=== PATIENT | male | born 1930 | race Caucasian/White ===

== ENCOUNTER → 2016-05-12 | Outpatient (CLI) | payer MEDICARE, OTHER ==
[~2016-05-12] VITALS: Ht 188 cm; Wt 104.3 kg
[~2016-05-12] MED LIST: CELE100C PO; FLOM5CAP PO; FLUT1LOT; LIDOCAINE 2% INJ 100 MG/5 ML SDV (FOR ANES.) As Ordered ONE; METO25TA74 PO; NS 1,000 ML IV SCH; PROPOFOL 200 MG/20 ML VIAL As Ordered ONE
--- NOTE | 2016-05-12 08:52 | ROOR ---
Patient Name: Robin Tillman Procedure Date: 05/12/2016 8:26 AM Date of : 1930 Age: 86 Room: [facility] Gender: Male Note Status: Finalized Procedure: Colonoscopy Indications: High risk colon cancer surveillance: Personal history of colonic polyps, Last colonoscopy: June 2011 Providers: Quentin TRINH MD Referring MD: AMADO BILL MD Requesting Provider: Medicines: Monitored Anesthesia Care Complications: No immediate complications. Procedure: Pre-Anesthesia Assessment: - The heart rate, respiratory rate, oxygen saturations, blood pressure, adequacy of pulmonary ventilation, and response to care were monitored throughout the procedure. The Colonoscope was introduced through the anus and advanced to the cecum, identified by appendiceal orifice and ileocecal valve. The colonoscopy was performed without difficulty. The patient tolerated the procedure well. The quality of the bowel preparation was good. Findings: Internal hemorrhoids were found during retroflexion. The hemorrhoids were medium-sized. Multiple diverticula were found in the sigmoid colon. The entire examined colon appeared normal on direct and retroflexion views. Impression: - Internal hemorrhoids. - Diverticulosis in the sigmoid colon. - The entire examined colon is normal on direct and retroflexion views. - No specimens collected. Recommendation: - Repeat colonoscopy as needed, no routine recall has been scheduled. Quentin Trinh MD Quentin TRINH MD 05/12/2016 8:52:39 AM This report has been signed electronically. Number of Addenda: 0 Note Initiated On: 05/12/2016 8:26 AM Estimated Blood Loss: Estimated blood loss: none.
[2016-05-12 09:10] VITALS: BP 158/84
== END ==
LOC: M OPP 07:30
PROVIDERS: ATTEND Internal Medicine Gastroenterology
DX: Z12.11 Encounter for screening for malignant neoplasm of colon (principal); Z86.010 Personal history of colon polyps; K57.30 Diverticulosis of large intestine without perforation or abscess without bleeding; K64.0 First degree hemorrhoids; I10 Essential (primary) hypertension; M19.90 Unspecified osteoarthritis, unspecified site; R21 Rash and other nonspecific skin eruption; N41.9 Inflammatory disease of prostate, unspecified; Z87.891 Personal history of nicotine dependence; Z85.46 Personal history of malignant neoplasm of prostate; Z85.828 Personal history of other malignant neoplasm of skin; Z79.899 Other long term (current) drug therapy
CPT/HCPCS: 99156; 99157; G0105

== ENCOUNTER → 2016-09-05 | Outpatient (REF) | payer MEDICARE, OTHER ==
[~2016-09-05] MED LIST changes: -LIDOCAINE 2% INJ 100 MG/5 ML SDV (FOR ANES.) As Ordered ONE; -NS 1,000 ML IV SCH; -PROPOFOL 200 MG/20 ML VIAL As Ordered ONE
[2016-09-05 13:09] LABS: BASO % 0.4 % (0.0-1.0); EOS # 0.1 K/mm3 (0.0-0.50); EOS % 3.2 % (0.0-3.0); LARGE UNSTAINED CELL # 0.1 K/mm3 (0.0-0.4); LARGE UNSTAINED CELL % 1.9 % (0.0-4.0); LYMPH # 1.4 K/mm3 (1.5-4.5); LYMPH % 32.4 % (24.0-44.0); MEAN CORPUSCULAR HEMOGLOBIN 30.6 pg (27.0-33.0); MEAN CORPUSCULAR HGB CONC 33.3 g/dl (32.0-36.5); MEAN CORPUSCULAR VOLUME 91.8 fl (80.0-96.0); MONO # 0.3 K/mm3 (0.0-0.8); MONO % 6.6 % (0.0-5.0); NEUTROPHILS # 2.5 K/mm3 (1.8-7.7); NEUTROPHILS % 55.5 % (36.0-66.0); PLATELET COUNT, AUTOMATED 162 k/mm3 (150-450); RED CELL DISTRIBUTION WIDTH 12.7 % (11.5-14.5); WHITE BLOOD COUNT 4.4 K/mm3 (4.0-10.0)
[2016-09-05 13:25] LABS: FOLATE 13.1 NG/ML; VITAMIN B12 LEVEL 292 PG/ML
[2016-09-05 13:36] LABS: ERYTHROCYTE SEDIMENTATION RATE 1 mm/hr (0-20)
[2016-09-05 13:39] LABS: ALBUMIN 3.5 GM/DL (3.2-5.2); ALBUMIN/GLOBULIN RATIO 1.21 (1.00-1.93); ALKALINE PHOSPHATASE 86 U/L (45-117); ALT/SGPT 28 U/L (12-78); ANION GAP 8 MEQ/L (8-16); AST/SGOT 15 U/L (15-37); BILIRUBIN,TOTAL 0.7 MG/DL (0.2-1.0); BLOOD UREA NITROGEN 19 MG/DL (7-18); CALCIUM LEVEL 8.6 MG/DL (8.8-10.2); CARBON DIOXIDE LEVEL 30 MEQ/L (21-32); CHLORIDE LEVEL 103 MEQ/L (98-107); CREATININE FOR GFR 0.94 MG/DL (0.70-1.30); GLOMERULAR FILTRATION RATE > 60.0 (>35); GLUCOSE, FASTING 112 MG/DL (83-110); POTASSIUM SERUM 4.3 MEQ/L (3.5-5.1); SODIUM LEVEL 141 MEQ/L (136-145); TOTAL PROTEIN 6.4 GM/DL (6.4-8.2)
[2016-09-09 00:07] LABS: VITAMIN E LEVEL 10.5 mg/L (5.3-17.5)
== END ==
LOC: M LABDRAW1 12:25 → M LABNEURO 12:25
PROVIDERS: ATTEND Psychiatry & Neurology Neurology
DX: R25.1 Tremor, unspecified (principal); R26.89 Other abnormalities of gait and mobility; R73.01 Impaired fasting glucose

== ENCOUNTER → 2016-10-27 | Outpatient (REF) | payer MEDICARE, OTHER ==
[~2016-10-27] MED LIST changes: +METO1TAB32 PO; -METO25TA74 PO
[2016-10-27 12:25] LABS: ALBUMIN 3.7 GM/DL (3.2-5.2); ALBUMIN/GLOBULIN RATIO 1.37 (1.00-1.93); ALKALINE PHOSPHATASE 74 U/L (45-117); ALT/SGPT 32 U/L (12-78); ANION GAP 7 MEQ/L (8-16); AST/SGOT 17 U/L (15-37); BILIRUBIN,TOTAL 0.8 MG/DL (0.2-1.0); BLOOD UREA NITROGEN 18 MG/DL (7-18); CALCIUM LEVEL 8.9 MG/DL (8.8-10.2); CARBON DIOXIDE LEVEL 29 MEQ/L (21-32); CHLORIDE LEVEL 101 MEQ/L (98-107); CHOLESTEROL LEVEL 215 MG/DL (<200); CREATININE FOR GFR 0.97 MG/DL (0.70-1.30); GLOMERULAR FILTRATION RATE > 60.0 (>35); GLUCOSE, FASTING 99 MG/DL (83-110); POTASSIUM SERUM 4.1 MEQ/L (3.5-5.1); SODIUM LEVEL 137 MEQ/L (136-145); TOTAL PROTEIN 6.4 GM/DL (6.4-8.2); TRIGLYCERIDES LEVEL 86 MG/DL (<150)
== END ==
LOC: M LABDRAW1 11:35
PROVIDERS: ATTEND Emergency Medicine
DX: E78.2 Mixed hyperlipidemia (principal); I10 Essential (primary) hypertension

== ENCOUNTER → 2017-02-14 | Outpatient (CLI) | payer MEDICARE, OTHER ==
[2017-02-15 14:18] LABS: PSA % FREE 16.7 % (.); PSA FREE 1.2 ng/mL; PSA TOTAL 7.2 ng/mL (0.0-4.0)
== END ==
LOC: M WUC 09:06
PROVIDERS: ATTEND Urology
DX: C61 Malignant neoplasm of prostate (principal)

== ENCOUNTER → 2017-05-03 | Outpatient (CLI) | payer MEDICARE, OTHER ==
[2017-05-03 09:27] LABS: ALBUMIN 3.8 GM/DL (3.2-5.2); ALBUMIN/GLOBULIN RATIO 1.23 (1.00-1.93); ALKALINE PHOSPHATASE 88 U/L (45-117); ALT/SGPT 31 U/L (12-78); ANION GAP 6 MEQ/L (8-16); AST/SGOT 19 U/L (7-37); BILIRUBIN,TOTAL 0.9 MG/DL (0.2-1.0); BLOOD UREA NITROGEN 18 MG/DL (7-18); CALCIUM LEVEL 8.8 MG/DL (8.8-10.2); CARBON DIOXIDE LEVEL 31 MEQ/L (21-32); CHLORIDE LEVEL 105 MEQ/L (98-107); CHOLESTEROL LEVEL 194 MG/DL (<200); CHOLESTEROL RISK RATIO 3.129 (<5); CREATININE FOR GFR 0.93 MG/DL (0.70-1.30); GLOMERULAR FILTRATION RATE > 60.0 (>35); GLUCOSE, FASTING 105 MG/DL (70-100); HDL CHOLESTEROL 62 MG/DL (>40); NON-HDL-C 132 MG/DL; POTASSIUM SERUM 4.7 MEQ/L (3.5-5.1); SODIUM LEVEL 142 MEQ/L (136-145); TOTAL PROTEIN 6.9 GM/DL (6.4-8.2); TRIGLYCERIDES LEVEL 70 MG/DL (<150)
== END ==
LOC: M WUC 08:05
DX: E78.2 Mixed hyperlipidemia (principal); I10 Essential (primary) hypertension
CPT/HCPCS: 80053

== ENCOUNTER → 2018-02-21 | Outpatient (REF) | payer MEDICARE, OTHER ==
[2018-02-21 12:40] LABS: PROSTATIC SPECIFIC AG MONITOR 8.8 NG/ML (< 4.0)
== END ==
LOC: M LABDRAW1 11:44
DX: C61 Malignant neoplasm of prostate (principal)
CPT/HCPCS: 84153

== ENCOUNTER → 2018-05-11 | Outpatient (REF) | payer MEDICARE, OTHER ==
[~2018-05-11] MED LIST changes: +FLOM0.4C39 PO; -FLOM5CAP PO
[2018-05-11 12:04] LABS: BASO % 0.2 % (0.0-1.0); EOS # 0.1 10^3/uL (0.0-0.50); EOS % 2.5 % (0.0-3.0); HEMATOCRIT 47.5 % (42.0-52.0); HEMOGLOBIN 15.8 g/dl (13.5-17.5); LYMPH # 1.6 10^3/uL (1.5-4.5); LYMPH % 32.8 % (24.0-44.0); MEAN CORPUSCULAR HEMOGLOBIN 29.4 pg (27.0-33.0); MEAN CORPUSCULAR HGB CONC 33.3 g/dl (32.0-36.5); MEAN CORPUSCULAR VOLUME 88.5 fl (80.0-96.0); MONO # 0.5 10^3/uL (0.0-0.8); MONO % 10.5 % (0.0-5.0); NEUTROPHILS # 2.6 10^3/uL (1.8-7.7); NEUTROPHILS % 53.8 % (36.0-66.0); PLATELET COUNT, AUTOMATED 163 10^3/uL (150-450); RED BLOOD COUNT 5.37 10^6/uL (4.30-6.10); WHITE BLOOD COUNT 4.8 10^3/uL (4.0-10.0)
[2018-05-11 12:53] LABS: BLOOD UREA NITROGEN 18 MG/DL (7-18); CREATININE FOR GFR 0.99 MG/DL (0.70-1.30); GLUCOSE, FASTING 114 MG/DL (70-100)
[2018-05-11 12:54] LABS: ALBUMIN 3.8 GM/DL (3.2-5.2); ALT/SGPT 40 U/L (12-78); BILIRUBIN,TOTAL 0.7 MG/DL (0.2-1.0); CALCIUM LEVEL 8.7 MG/DL (8.8-10.2); CARBON DIOXIDE LEVEL 30 MEQ/L (21-32); CHLORIDE LEVEL 105 MEQ/L (98-107); CHOLESTEROL LEVEL 187 MG/DL (<200); GLOMERULAR FILTRATION RATE > 60.0 (>35); HDL CHOLESTEROL 55 MG/DL (>40); LDL CHOLESTEROL 112 MG/DL (<100); NON-HDL-C 132 MG/DL; POTASSIUM SERUM 4.4 MEQ/L (3.5-5.1); SODIUM LEVEL 140 MEQ/L (136-145); TOTAL PROTEIN 6.6 GM/DL (6.4-8.2); TRIGLYCERIDES LEVEL 102 MG/DL (<150)
== END ==
LOC: M LABDRAW1 09:06
PROVIDERS: ATTEND Physician Assistant
DX: I10 Essential (primary) hypertension (principal); E78.2 Mixed hyperlipidemia

== ENCOUNTER → 2018-07-31 | Outpatient (REF) | payer MEDICARE, OTHER ==
[2018-07-31 18:43] LABS: BASO % 0.5 % (0.0-1.0); EOS # 0.2 10^3/uL (0.0-0.50); EOS % 3.1 % (0.0-3.0); HEMATOCRIT 49.2 % (42.0-52.0); HEMOGLOBIN 15.8 g/dl (13.5-17.5); LYMPH # 1.9 10^3/uL (1.5-4.5); LYMPH % 32.1 % (24.0-44.0); MEAN CORPUSCULAR HEMOGLOBIN 28.9 pg (27.0-33.0); MEAN CORPUSCULAR HGB CONC 32.1 g/dl (32.0-36.5); MEAN CORPUSCULAR VOLUME 89.9 fl (80.0-96.0); MONO # 0.6 10^3/uL (0.0-0.8); MONO % 10.2 % (0.0-5.0); NEUTROPHILS # 3.1 10^3/uL (1.8-7.7); NEUTROPHILS % 53.9 % (36.0-66.0); PLATELET COUNT, AUTOMATED 212 10^3/uL (150-450); RED BLOOD COUNT 5.47 10^6/uL (4.30-6.10); WHITE BLOOD COUNT 5.8 10^3/uL (4.0-10.0)
[2018-07-31 18:44] LABS: ALBUMIN 3.5 GM/DL (3.2-5.2); ALT/SGPT 50 U/L (12-78); BILIRUBIN,TOTAL 0.6 MG/DL (0.2-1.0); BLOOD UREA NITROGEN 15 MG/DL (7-18); CALCIUM LEVEL 8.5 MG/DL (8.8-10.2); CARBON DIOXIDE LEVEL 31 MEQ/L (21-32); CHLORIDE LEVEL 106 MEQ/L (98-107); CREATININE FOR GFR 0.92 MG/DL (0.70-1.30); GLOMERULAR FILTRATION RATE > 60.0 (>35); GLUCOSE, FASTING 93 MG/DL (70-100); POTASSIUM SERUM 4.2 MEQ/L (3.5-5.1); SODIUM LEVEL 141 MEQ/L (136-145); TOTAL PROTEIN 6.8 GM/DL (6.4-8.2)
== END ==
LOC: M LABDRAW1 17:14
PROVIDERS: ATTEND Physician Assistant
DX: R19.7 Diarrhea, unspecified (principal)

== ENCOUNTER → 2018-08-01 | Outpatient (REF) | payer MEDICARE, OTHER | LOC: M LAB REF 11:35 | PROVIDERS: ATTEND Physician Assistant | DX: R19.7 Diarrhea, unspecified (principal) ==

== ENCOUNTER → 2018-10-17 | Outpatient (CLI) | payer MEDICARE, OTHER ==
[2018-10-17 20:23] LABS: BASO % 0.2 % (0.0-1.0); EOS # 0.2 10^3/uL (0.0-0.50); EOS % 3.5 % (0.0-3.0); HEMATOCRIT 48.1 % (42.0-52.0); HEMOGLOBIN 15.8 g/dl (13.5-17.5); LYMPH # 1.9 10^3/uL (1.5-4.5); MEAN CORPUSCULAR HEMOGLOBIN 29.3 pg (27.0-33.0); MEAN CORPUSCULAR HGB CONC 32.8 g/dl (32.0-36.5); MEAN CORPUSCULAR VOLUME 89.1 fl (80.0-96.0); MONO # 0.6 10^3/uL (0.0-0.8); NEUTROPHILS # 2.6 10^3/uL (1.8-7.7); NEUTROPHILS % 48.9 % (36.0-66.0); PLATELET COUNT, AUTOMATED 180 10^3/uL (150-450); WHITE BLOOD COUNT 5.4 10^3/uL (4.0-10.0)
[2018-10-17 20:38] LABS: ALBUMIN 3.6 GM/DL (3.2-5.2); ALT/SGPT 27 U/L (12-78); BILIRUBIN,TOTAL 0.4 MG/DL (0.2-1.0); BLOOD UREA NITROGEN 14 MG/DL (7-18); CALCIUM LEVEL 8.8 MG/DL (8.8-10.2); CARBON DIOXIDE LEVEL 30 MEQ/L (21-32); CHLORIDE LEVEL 108 MEQ/L (98-107); CREATININE FOR GFR 0.97 MG/DL (0.70-1.30); GLOMERULAR FILTRATION RATE > 60.0 (>35); GLUCOSE, FASTING 125 MG/DL (70-100); POTASSIUM SERUM 3.9 MEQ/L (3.5-5.1); SODIUM LEVEL 144 MEQ/L (136-145); TOTAL PROTEIN 6.8 GM/DL (6.4-8.2)
== END ==
LOC: M WUC 15:57
PROVIDERS: ATTEND Physician Assistant
DX: H81.13 Benign paroxysmal vertigo, bilateral (principal)

== ENCOUNTER → 2018-11-27 | Outpatient (CLI) | payer MEDICARE, OTHER ==
--- NOTE | 2018-11-27 08:42 | REP ---
Right foot four views: There are no comparisons. There is demineralization. The joint spaces are unremarkable. There are accessory ossicles inferolateral to the cuboid. There is spurring along the superior margin of the talonavicular joint. There is a small calcaneal plantar spur. No fracture or dislocation. Electronically Signed by Vinny Gonzalez MD 11/27/2018 08:33 A
== END ==
LOC: M WUC 08:07
PROVIDERS: ATTEND Physician Assistant Medical
DX: M79.672 Pain in left foot (principal)

== ENCOUNTER → 2019-01-26 | Outpatient (CLI) | payer MEDICARE, OTHER ==
[2019-01-26 18:03] LABS: BASO % 0.3 % (0.0-1.0); EOS # 0.1 10^3/uL (0.0-0.5); EOS % 1.7 % (0.0-3.0); HEMATOCRIT 51.4 % (42.0-52.0); HEMOGLOBIN 16.5 g/dl (13.5-17.5); LYMPH # 1.6 10^3/uL (1.5-5.0); LYMPH % 22.3 % (24.0-44.0); MEAN CORPUSCULAR HEMOGLOBIN 29.5 pg (27.0-33.0); MEAN CORPUSCULAR HGB CONC 32.1 g/dl (32.0-36.5); MEAN CORPUSCULAR VOLUME 91.9 fl (80.0-96.0); MONO # 0.7 10^3/uL (0.0-0.8); MONO % 9.4 % (0.0-5.0); NEUTROPHILS # 4.8 10^3/uL (1.5-8.5); NEUTROPHILS % 65.9 % (36.0-66.0); PLATELET COUNT, AUTOMATED 170 10^3/uL (150-450); RED BLOOD COUNT 5.59 10^6/uL (4.30-6.10); WHITE BLOOD COUNT 7.2 10^3/uL (4.0-10.0)
[2019-01-26 18:06] LABS: ALBUMIN 3.8 GM/DL (3.2-5.2); ALT/SGPT 26 U/L (12-78); BILIRUBIN,TOTAL 0.7 MG/DL (0.2-1.0); BLOOD UREA NITROGEN 20 MG/DL (7-18); CALCIUM LEVEL 9.1 MG/DL (8.8-10.2); CARBON DIOXIDE LEVEL 32 MEQ/L (21-32); CHLORIDE LEVEL 105 MEQ/L (98-107); CREATININE FOR GFR 1.02 MG/DL (0.70-1.30); GLOMERULAR FILTRATION RATE > 60.0 (>35); GLUCOSE, FASTING 97 MG/DL (70-100); LIPASE 139 U/L (73-393); POTASSIUM SERUM 4.6 MEQ/L (3.5-5.1); SODIUM LEVEL 141 MEQ/L (136-145); TOTAL PROTEIN 7.1 GM/DL (6.4-8.2)
== END ==
LOC: M WUC 09:36
PROVIDERS: ATTEND Physician Assistant
DX: R10.30 Lower abdominal pain, unspecified (principal)

== ENCOUNTER → 2019-04-29 | Outpatient (CLI) | payer MEDICARE, OTHER ==
[2019-04-29 09:39] LABS: BASO % 0.4 % (0.0-1.0); EOS # 0.1 10^3/uL (0.0-0.5); EOS % 2.6 % (0.0-3.0); HEMOGLOBIN 16.3 g/dl (13.5-17.5); LYMPH % 35.7 % (24.0-44.0); MEAN CORPUSCULAR HEMOGLOBIN 28.6 pg (27.0-33.0); MEAN CORPUSCULAR HGB CONC 31.3 g/dl (32.0-36.5); MEAN CORPUSCULAR VOLUME 91.2 fl (80.0-96.0); MONO # 0.5 10^3/uL (0.0-0.8); MONO % 9.5 % (0.0-5.0); NEUTROPHILS # 2.8 10^3/uL (1.5-8.5); NEUTROPHILS % 51.6 % (36.0-66.0); PLATELET COUNT, AUTOMATED 172 10^3/uL (150-450); WHITE BLOOD COUNT 5.5 10^3/uL (4.0-10.0)
[2019-04-29 10:05] LABS: ALBUMIN 3.8 GM/DL (3.2-5.2); ALT/SGPT 26 U/L (12-78); BILIRUBIN,TOTAL 0.8 MG/DL (0.2-1.0); BLOOD UREA NITROGEN 17 MG/DL (7-18); CARBON DIOXIDE LEVEL 32 MEQ/L (21-32); CHLORIDE LEVEL 107 MEQ/L (98-107); CHOLESTEROL LEVEL 190 MG/DL (<200); CHOLESTEROL RISK RATIO 2.923 (<5); CREATININE FOR GFR 0.97 MG/DL (0.70-1.30); GLOMERULAR FILTRATION RATE > 60.0 (>35); GLUCOSE, FASTING 102 MG/DL (70-100); HDL CHOLESTEROL 65 MG/DL (>40); LDL CHOLESTEROL 112 MG/DL (<100); NON-HDL-C 125 MG/DL; POTASSIUM SERUM 4.5 MEQ/L (3.5-5.1); SODIUM LEVEL 142 MEQ/L (136-145); TOTAL PROTEIN 6.8 GM/DL (6.4-8.2); TRIGLYCERIDES LEVEL 64 MG/DL (<150)
== END ==
LOC: M WUC 08:05
PROVIDERS: ATTEND Physician Assistant
DX: E78.2 Mixed hyperlipidemia (principal); I10 Essential (primary) hypertension; R19.7 Diarrhea, unspecified

== ENCOUNTER → 2019-06-20 | Outpatient (CLI) | payer MEDICARE, OTHER ==
[2019-06-20 13:11] LABS: BASO % 0.2 % (0.0-1.0); EOS # 0.1 10^3/uL (0.0-0.5); EOS % 0.6 % (0.0-3.0); HEMATOCRIT 50.4 % (42.0-52.0); HEMOGLOBIN 16.2 g/dl (13.5-17.5); LYMPH # 1.6 10^3/uL (1.5-5.0); MEAN CORPUSCULAR HEMOGLOBIN 29.1 pg (27.0-33.0); MEAN CORPUSCULAR HGB CONC 32.1 g/dl (32.0-36.5); MEAN CORPUSCULAR VOLUME 90.5 fl (80.0-96.0); MONO # 0.9 10^3/uL (0.0-0.8); MONO % 7.5 % (0.0-5.0); NEUTROPHILS # 9.6 10^3/uL (1.5-8.5); NEUTROPHILS % 78.2 % (36.0-66.0); PLATELET COUNT, AUTOMATED 212 10^3/uL (150-450); RED BLOOD COUNT 5.57 10^6/uL (4.30-6.10); WHITE BLOOD COUNT 12.3 10^3/uL (4.0-10.0)
[2019-06-20 13:24] LABS: ALBUMIN 3.4 GM/DL (3.2-5.2); ALT/SGPT 26 U/L (12-78); BILIRUBIN,TOTAL 0.8 MG/DL (0.2-1.0); BLOOD UREA NITROGEN 13 MG/DL (7-18); CALCIUM LEVEL 8.8 MG/DL (8.8-10.2); CARBON DIOXIDE LEVEL 31 MEQ/L (21-32); CHLORIDE LEVEL 105 MEQ/L (98-107); CREATININE FOR GFR 1.07 MG/DL (0.70-1.30); GLOMERULAR FILTRATION RATE > 60.0 (>35); GLUCOSE, FASTING 114 MG/DL (70-100); POTASSIUM SERUM 4.1 MEQ/L (3.5-5.1); SODIUM LEVEL 140 MEQ/L (136-145); TOTAL PROTEIN 6.5 GM/DL (6.4-8.2)
== END ==
LOC: M WUC 09:38
PROVIDERS: ATTEND Physician Assistant
DX: R10.84 Generalized abdominal pain (principal)

== ENCOUNTER → 2019-07-16 | Outpatient (CLI) | payer MEDICARE, OTHER ==
[2019-07-16 13:15] LABS: BASO % 0.2 % (0.0-1.0); EOS # 0.1 10^3/uL (0.0-0.5); EOS % 2.4 % (0.0-3.0); HEMATOCRIT 51.3 % (42.0-52.0); HEMOGLOBIN 16.4 g/dl (13.5-17.5); LYMPH # 1.5 10^3/uL (1.5-5.0); LYMPH % 29.4 % (24.0-44.0); MEAN CORPUSCULAR VOLUME 90.8 fl (80.0-96.0); MONO # 0.5 10^3/uL (0.0-0.8); MONO % 10.3 % (0.0-5.0); NEUTROPHILS # 2.9 10^3/uL (1.5-8.5); NEUTROPHILS % 57.3 % (36.0-66.0); PLATELET COUNT, AUTOMATED 186 10^3/uL (150-450); RED BLOOD COUNT 5.65 10^6/uL (4.30-6.10)
[2019-07-16 13:45] LABS: ALBUMIN 3.7 GM/DL (3.2-5.2); ALT/SGPT 25 U/L (12-78); AMYLASE 49 U/L (25-115); BLOOD UREA NITROGEN 16 MG/DL (7-18); CALCIUM LEVEL 9.5 MG/DL (8.8-10.2); CARBON DIOXIDE LEVEL 31 MEQ/L (21-32); CHLORIDE LEVEL 105 MEQ/L (98-107); CREATININE FOR GFR 0.98 MG/DL (0.70-1.30); GLOMERULAR FILTRATION RATE > 60.0 (>35); GLUCOSE, FASTING 102 MG/DL (70-100); LIPASE 117 U/L (73-393); POTASSIUM SERUM 4.3 MEQ/L (3.5-5.1); SODIUM LEVEL 139 MEQ/L (136-145); TOTAL PROTEIN 6.9 GM/DL (6.4-8.2)
== END ==
LOC: M WUC 08:46
PROVIDERS: ATTEND Physician Assistant
DX: R10.30 Lower abdominal pain, unspecified (principal)

== ENCOUNTER → 2019-07-29 | Outpatient (CLI) | payer MEDICARE, OTHER ==
[~2019-07-29] MED LIST changes: +GASTROGRAFIN SOLUTION 30ML (Q9963) As Ordered ONE
== END ==
LOC: M RAD 13:56
PROVIDERS: ATTEND Physician Assistant Medical
DX: R63.4 Abnormal weight loss (principal); R10.30 Lower abdominal pain, unspecified; R19.4 Change in bowel habit

== ENCOUNTER → 2019-08-08 | Outpatient (CLI) | payer MEDICARE, OTHER ==
[~2019-08-08] MED LIST changes: -GASTROGRAFIN SOLUTION 30ML (Q9963) As Ordered ONE; +GLUCAGON INJ 1MG VIAL As Ordered ONE; +ISOVUE-370 76% 100ML VIAL As Ordered ONE; +VoLumen 0.1% SUSPENSION 450ML BOTTLE As Ordered ONE
--- NOTE | 2019-08-08 11:17 | REP ---
CT ABDOMEN AND PELVIS WITH IV CONTRAST (CT ENTEROGRAPHY): CT abdomen and pelvis performed following administration of VoLumen oral contrast as per hospital protocol as well as the intravenous administration of 100 mL of Isovue 370. Sagittal and coronal reconstruction images are performed. Visualized lung bases demonstrate no infiltrate. There is a small hiatal hernia. There is an enhancing nodule in the posterior right lobe of the liver, which is unchanged dating back to a prior CT of 03/12/2014, approximately 1.5 cm in diameter. This probably represents a hemangioma. Gallbladder is grossly unremarkable. I do not see evidence of biliary dilatation. Spleen is normal in size. There are a few calcified granulomas in the spleen. A left adrenal nodule measures 1.8 cm in diameter consistent with a stable adenoma, unchanged since 03/12/2014. There is stable right adrenal gland thickening. The pancreas demonstrates no mass. The right kidney appears normal with no hydronephrosis or mass. There is a left renal cyst with no abnormal enhancement. This measures approximately 8.3 cm in diameter. No left hydronephrosis. There is mild atherosclerotic calcification of the abdominal aorta without aneurysm. There is no adenopathy. There is no free air or free fluid. There is no bowel wall thickening. There is diffuse diverticulosis of the colon, predominantly involving the sigmoid colon. There is no evidence of acute diverticulitis. No small bowel abnormality is seen. No bowel dilatation is seen. There is a small umbilical hernia containing non-inflamed fat. There are small bilateral inguinal hernias containing noninflamed fat. Prostate is enlarged. It measures approximately 6.5 x 5.9 x 6.8 cm. Urinary bladder is moderately distended and is grossly unremarkable. There are degenerative changes of the spine. The appendix is normal. IMPRESSION: Small hiatal hernia. Small umbilical hernia and bilateral inguinal hernias contain noninflamed fat. Stable nodule right lobe of the liver and stable left adrenal adenoma, both benign and unchanged since 2013. There is diffuse colonic diverticulosis predominately involving the sigmoid colon. No other abnormality is seen of small or large bowel. Enlarged prostate. Electronically Signed by Vinny Can MD 08/08/2019 12:54 P
== END ==
LOC: M RAD 07:41
PROVIDERS: ATTEND Physician Assistant Medical
DX: K44.9 Diaphragmatic hernia without obstruction or gangrene (principal); K40.21 Bilateral inguinal hernia, without obstruction or gangrene, recurrent; K76.89 Other specified diseases of liver; E27.9 Disorder of adrenal gland, unspecified; R63.4 Abnormal weight loss; R19.4 Change in bowel habit
CPT/HCPCS: 74177; J1610; Q9967

== ENCOUNTER → 2019-11-18 | Outpatient (REF) | payer MEDICARE, OTHER ==
[~2019-11-18] MED LIST changes: -GLUCAGON INJ 1MG VIAL As Ordered ONE; -ISOVUE-370 76% 100ML VIAL As Ordered ONE; -VoLumen 0.1% SUSPENSION 450ML BOTTLE As Ordered ONE
== END ==
LOC: M WUC 09:55
PROVIDERS: ATTEND Physician Assistant
DX: N40.1 Benign prostatic hyperplasia with lower urinary tract symptoms (principal)

== ENCOUNTER → 2020-01-06 | Outpatient (CLI) | payer MEDICARE, OTHER ==
[2020-01-07 23:12] LABS: PSA % FREE 17.5 % (.); PSA FREE 1.61 ng/mL; PSA TOTAL 9.2 ng/mL (0.0-4.0)
== END ==
LOC: M WUC 10:19
PROVIDERS: ATTEND Physician Assistant
DX: N41.0 Acute prostatitis (principal); R97.20 Elevated prostate specific antigen [PSA]

== ENCOUNTER → 2020-07-14 | Outpatient (CLI) | payer MEDICARE, OTHER | LOC: M WUC 09:41 | PROVIDERS: ATTEND Physician Assistant | DX: N41.0 Acute prostatitis (principal) | CPT/HCPCS: 36415; G0103 ==

== ENCOUNTER → 2020-07-22 | Outpatient (CLI) | payer MEDICARE, OTHER ==
[2020-07-22 16:51] LABS: BASO % 0.4 % (0.0-1.0); EOS # 0.1 10^3/uL (0.0-0.5); EOS % 2.3 % (0.0-3.0); HEMATOCRIT 51.6 % (42.0-52.0); HEMOGLOBIN 16.2 g/dl (13.5-17.5); LYMPH # 1.6 10^3/uL (1.5-5.0); LYMPH % 31.1 % (24.0-44.0); MEAN CORPUSCULAR HEMOGLOBIN 28.9 pg (27.0-33.0); MEAN CORPUSCULAR HGB CONC 31.4 g/dl (32.0-36.5); MEAN CORPUSCULAR VOLUME 92.1 fl (80.0-96.0); MONO # 0.5 10^3/uL (0.0-0.8); MONO % 9.9 % (2.0-8.0); NEUTROPHILS % 56.1 % (36.0-66.0); PLATELET COUNT, AUTOMATED 179 10^3/uL (150-450); WHITE BLOOD COUNT 5.3 10^3/uL (4.0-10.0)
[2020-07-22 17:25] LABS: ALBUMIN 3.9 GM/DL (3.2-5.2); ALT/SGPT 24 U/L (12-78); BILIRUBIN,TOTAL 0.7 MG/DL (0.2-1.0); BLOOD UREA NITROGEN 16 MG/DL (7-18); CALCIUM LEVEL 9.2 MG/DL (8.8-10.2); CARBON DIOXIDE LEVEL 29 MEQ/L (21-32); CHLORIDE LEVEL 106 MEQ/L (98-107); CHOLESTEROL LEVEL 201 MG/DL (<200); CHOLESTEROL RISK RATIO 3.295 (<5); CREATININE FOR GFR 0.97 MG/DL (0.70-1.30); GLOMERULAR FILTRATION RATE > 60.0 (>35); GLUCOSE, FASTING 98 MG/DL (70-100); HDL CHOLESTEROL 61 MG/DL (>40); LDL CHOLESTEROL 119 MG/DL (<100); NON-HDL-C 140 MG/DL; POTASSIUM SERUM 4.5 MEQ/L (3.5-5.1); SODIUM LEVEL 140 MEQ/L (136-145); TRIGLYCERIDES LEVEL 105 MG/DL (<150)
[2020-07-22 18:59] LABS: HEMOGLOBIN A1c 5.6 %
== END ==
LOC: M WUC 10:23
PROVIDERS: ATTEND Physician Assistant Medical
DX: R19.7 Diarrhea, unspecified (principal); E78.2 Mixed hyperlipidemia; R73.01 Impaired fasting glucose

== ENCOUNTER → 2020-09-07 | Outpatient (CLI) | payer MEDICARE, OTHER ==
--- NOTE | 2020-09-07 14:44 | REP ---
INDICATION: SCROTAL PAIN - WALK IN LABS AFTER. COMPARISON: None TECHNIQUE: Bilateral testicular ultrasound FINDINGS: The right testicle measures 4.3 x 1.9 x 3.5 cm and the left testicle measures 4.3 x 1.8 x 2.6 cm. The right testicular RI is 0.62 and the left is 0.46. There are bilateral spermatoceles. The largest on the right measures 2 cm in the largest on the left measures 1 cm. There are no solid testicular masses. [id number] imaging shows the testicular parenchymal echo pattern to be symmetric. There is no significant hydrocele on either side. There is no significant varicocele on either side. Color Doppler imaging shows a normal appearing vascular pattern bilaterally. IMPRESSION: Bilateral spermatoceles. <Electronically signed by Josh Dubose > 09/07/20 [id number]
[2020-09-07 15:07] LABS: BASO % 0.4 % (0.0-1.0); EOS # 0.1 10^3/uL (0.0-0.5); EOS % 1.5 % (0.0-3.0); HEMATOCRIT 50.8 % (42.0-52.0); HEMOGLOBIN 16.6 g/dl (13.5-17.5); LYMPH # 1.6 10^3/uL (1.5-5.0); LYMPH % 29.2 % (24.0-44.0); MEAN CORPUSCULAR HGB CONC 32.7 g/dl (32.0-36.5); MEAN CORPUSCULAR VOLUME 88.8 fl (80.0-96.0); MONO # 0.6 10^3/uL (0.0-0.8); MONO % 10.3 % (2.0-8.0); NEUTROPHILS # 3.1 10^3/uL (1.5-8.5); NEUTROPHILS % 58.4 % (36.0-66.0); PLATELET COUNT, AUTOMATED 181 10^3/uL (150-450); RED BLOOD COUNT 5.72 10^6/uL (4.30-6.10); WHITE BLOOD COUNT 5.3 10^3/uL (4.0-10.0)
[2020-09-07 15:33] LABS: BLOOD UREA NITROGEN 13 MG/DL (7-18); CALCIUM LEVEL 9.4 MG/DL (8.8-10.2); CARBON DIOXIDE LEVEL 30 MEQ/L (21-32); CHLORIDE LEVEL 105 MEQ/L (98-107); CREATININE FOR GFR 0.96 MG/DL (0.70-1.30); GLOMERULAR FILTRATION RATE > 60.0 (>35); GLUCOSE, FASTING 105 MG/DL (70-100); SODIUM LEVEL 140 MEQ/L (136-145)
== END ==
LOC: M RAD 14:00
PROVIDERS: ATTEND Physician Assistant
DX: N43.42 Spermatocele of epididymis, multiple (principal); N50.82 Scrotal pain

== ENCOUNTER 2020-09-14 08:41 | Inpatient (IN) | payer MEDICARE, OTHER ==
[2020-09-14] VITALS (7 sets, daily range): BP systolic 70–190; BP diastolic 30–70
[~2020-09-14] VITALS: Ht 190.5 cm; Wt 99.1 kg
[2020-09-14] MEDS ORDERED: MOXI400T11 PO (08:56)
[2020-09-14] MEDS ORDERED: OMEP-221 PO (08:56)
[2020-09-14] MEDS ORDERED: TAMS1CAP17 PO (08:56)
[2020-09-14] MEDS ORDERED: LOSA25TA14 PO (08:56)
[2020-09-14] MEDS ORDERED: LABETALOL 100MG/20ML VIAL IV STA (09:29)
[2020-09-14] MEDS: NS 1,000 ML IV SCH ×2 (10:10→17:56)
[2020-09-14 10:25] LABS: BASO % 0.2 % (0.0-1.0); EOS # 0.1 10^3/uL (0.0-0.5); EOS % 1.3 % (0.0-3.0); HEMATOCRIT 48.8 % (42.0-52.0); HEMOGLOBIN 16.2 g/dl (13.5-17.5); LYMPH # 1.1 10^3/uL (1.5-5.0); LYMPH % 21.1 % (24.0-44.0); MEAN CORPUSCULAR HEMOGLOBIN 29.5 pg (27.0-33.0); MEAN CORPUSCULAR HGB CONC 33.2 g/dl (32.0-36.5); MEAN CORPUSCULAR VOLUME 88.9 fl (80.0-96.0); MONO # 0.5 10^3/uL (0.0-0.8); NEUTROPHILS # 3.6 10^3/uL (1.5-8.5); PLATELET COUNT, AUTOMATED 170 10^3/uL (150-450); RED BLOOD COUNT 5.49 10^6/uL (4.30-6.10); WHITE BLOOD COUNT 5.4 10^3/uL (4.0-10.0)
--- NOTE | 2020-09-14 10:58 | REP ---
INDICATION: Abdominal Pain COMPARISON: 03/01/2016. TECHNIQUE: PA/Lateral FINDINGS: Lungs: Clear, no infiltrate. Heart: Normal in size. Mediastinum: Mediastinal silhouette unremarkable. Pleural angles: Unremarkable.. Bones and soft tissues: There are degenerative changes of the spine without compression deformity. IMPRESSION: No acute pulmonary disease. <Electronically signed by Vinny Can > 09/14/20 [id number]
[2020-09-14 11:00] LABS: ALBUMIN 3.5 GM/DL (3.2-5.2); ALT/SGPT 22 U/L (12-78); BILIRUBIN,DIRECT 0.2 MG/DL (0.0-0.2); CK-MB VALUE MASS < 1.0 NG/ML (<3.6); CPK CREATINE PHOSPHOKINASE 31 U/L (39-308); LIPASE 89 U/L (73-393); MB/CK RELATIVE INDEX 3.23 (< OR =4); TOTAL PROTEIN 6.4 GM/DL (6.4-8.2); TROPONIN I < 0.02 NG/ML (< 0.10)
[2020-09-14 11:17] LABS: RSV AMPLIFICATION NEGATIVE (NEGATIVE)
[2020-09-14 12:30] LABS: BLOOD UREA NITROGEN 12 MG/DL (7-18); CALCIUM LEVEL 8.5 MG/DL (8.8-10.2); CARBON DIOXIDE LEVEL 27 MEQ/L (21-32); CHLORIDE LEVEL 107 MEQ/L (98-107); CREATININE FOR GFR 0.91 MG/DL (0.70-1.30); GLOMERULAR FILTRATION RATE > 60.0 (>35); GLUCOSE, FASTING 101 MG/DL (70-100); POTASSIUM SERUM 3.7 MEQ/L (3.5-5.1); SODIUM LEVEL 140 MEQ/L (136-145)
[2020-09-14] MEDS ORDERED: ISOVUE-370 76% 100ML VIAL As Ordered ONE (12:37)
[2020-09-14 13:12] LABS: CK-MB VALUE MASS 1.3 NG/ML (<3.6); MB/CK RELATIVE INDEX 4.81 (< OR =4); TROPONIN I 0.02 NG/ML (< 0.10)
--- NOTE | 2020-09-14 13:13 | REP ---
INDICATION: lethargy, anorexia, r/o bowel obstruction, diverticulitis. COMPARISON: Multiple the latest 06/10/2019 TECHNIQUE: Standard helical technique after the intravenous administration of 100 cc Isovue 370. No oral bowel preparatory contrast was administered prior to the exam. FINDINGS: Seen in the posterior segment of the right lobe of the liver there is an intensely enhancing lesion which is completely unchanged when compared to an older prior contrast-enhanced examination of the abdomen from 03/12/2014 there are no new hepatic abnormalities. The gallbladder, spleen, pancreas, adrenal glands, and kidneys are also unchanged. There is a stable left adrenal gland nodule and a stable Bosniak class 1 left renal cyst. The abdominal aorta and para-aortic regions are within normal limits. There is no significant change in appearance of the bowel loops or the mesenteries. There is colonic diverticulosis status quo. Increased adipose this seen in each inguinal canal right greater than left also appearing stable. There are no abnormal bowel containing inguinal hernias. There is evidence of a small umbilical hernia through which a knuckle of small bowel protrudes. There is evidence of prostatomegaly. There is no free fluid or free air. There is no significant change in appearance of the imaged osseous structures. Spinal, hip, and sacroiliac degenerative changes are again noted. IMPRESSION: There is no evidence of acute disease. Findings as described above. <Electronically signed by Josh Dubose > 09/14/20 [id number]
[2020-09-14] MEDS ORDERED: LOSARTAN 25 MG TAB PO ONE (16:40)
[2020-09-14] MEDS ORDERED: cloNIDine 0.1MG TABLET PO ONE ×2 (16:40→17:00)
--- NOTE | 2020-09-14 17:01 | ECGEPIP ---
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
[2020-09-14] MEDS ORDERED: **hydrALAZINE** 10 MG TAB PO PRN (17:45)
[2020-09-14] MEDS: LACTOBACILLUS ACIDOPHILUS CAP (BACID) PO SCH ×2 (17:54→21:01)
[2020-09-14] MEDS: OMEPRAZOLE 20 MG CAP PO SCH (17:56)
[2020-09-14] MEDS ORDERED: cefTRIAXone SOD 1 GM in D5W MINI-BAG PLUS 50 ML IV SCH (18:00)
[2020-09-14 18:47] LABS: CK-MB VALUE MASS 1.6 NG/ML (<3.6); MB/CK RELATIVE INDEX 4.21 (< OR =4); TROPONIN I 0.03 NG/ML (< 0.10)
[2020-09-14] MEDS ORDERED: NS 1,000 ML IV ONE (20:20)
[2020-09-14] MEDS ORDERED: TAMSULOSIN 0.4 MG CAP PO SCH (21:00)
[2020-09-14] MEDS ORDERED: CelecoXIB (CeleBREX) 100 MG CAP PO SCH (21:00)
--- NOTE | 2020-09-14 22:38 | REPVR ---
PROCEDURE INFORMATION: Exam: CT Head Without Contrast Exam date and time: 09/14/2020 10:24 PM Age: 89 years old Clinical indication: Other: Hypertnesive urgency R/O ich TECHNIQUE: Imaging protocol: Computed tomography of the head without contrast. Radiation optimization: All CT scans at this facility use at least one of these dose optimization techniques: automated exposure control; mA and/or kV adjustment per patient size (includes targeted exams where dose is matched to clinical indication); or iterative reconstruction. Other technique: STROKE PROTOCOL was implemented. COMPARISON: No relevant prior studies available. FINDINGS: Brain: There is minimal patchy low attenuation of deep white matter. There is mild prominence of the peripheral sulci. Cerebral ventricles: There is slight prominence of the central ventricular system. Paranasal sinuses: Visualized sinuses are unremarkable. No fluid levels. Mastoid air cells: Visualized mastoid air cells are well aerated. Bones/joints: Venous lakes are noted at the torcula within the skull. Soft tissues: Unremarkable. IMPRESSION: 1. Minimal chronic ischemic white matter change and mild atrophy. 2. Otherwise negative noncontrast head CT. [place] Stroke Program Early CT Score (ASPECTS) = 10/10. Electronically signed by: Bayron Lacey On 09/14/2020 22:38:13 PM
[2020-09-15 00:39] LABS: CK-MB VALUE MASS 1.5 NG/ML (<3.6); MB/CK RELATIVE INDEX 3.41 (< OR =4); TROPONIN I 0.03 NG/ML (< 0.10)
[2020-09-15 02:09] VITALS: BP 102/52
[2020-09-15] MEDS: NS 1,000 ML IV SCH (05:57)
[2020-09-15 06:00] VITALS: BP 102/53
[2020-09-15] MEDS ORDERED: MOXIFLOXACIN 400 MG TAB PO SCH (06:00)
[2020-09-15 06:27] LABS: BASO % 0.3 % (0.0-1.0); EOS # 0.1 10^3/uL (0.0-0.5); EOS % 2.4 % (0.0-3.0); HEMATOCRIT 42.9 % (42.0-52.0); LYMPH # 1.6 10^3/uL (1.5-5.0); LYMPH % 27.6 % (24.0-44.0); MEAN CORPUSCULAR HGB CONC 33.1 g/dl (32.0-36.5); MEAN CORPUSCULAR VOLUME 90.5 fl (80.0-96.0); MONO # 0.7 10^3/uL (0.0-0.8); MONO % 11.3 % (2.0-8.0); NEUTROPHILS # 3.4 10^3/uL (1.5-8.5); NEUTROPHILS % 58.1 % (36.0-66.0); PLATELET COUNT, AUTOMATED 163 10^3/uL (150-450); RED BLOOD COUNT 4.74 10^6/uL (4.30-6.10); WHITE BLOOD COUNT 5.9 10^3/uL (4.0-10.0)
[2020-09-15 06:39] LABS: HEMOGLOBIN 14.2 g/dl (13.5-17.5)
[2020-09-15 06:51] LABS: BLOOD UREA NITROGEN 12 MG/DL (7-18); CALCIUM LEVEL 8.2 MG/DL (8.8-10.2); CARBON DIOXIDE LEVEL 27 MEQ/L (21-32); CHLORIDE LEVEL 112 MEQ/L (98-107); CREATININE FOR GFR 0.94 MG/DL (0.70-1.30); GLOMERULAR FILTRATION RATE > 60.0 (>35); GLUCOSE, FASTING 100 MG/DL (70-100); POTASSIUM SERUM 3.9 MEQ/L (3.5-5.1); SODIUM LEVEL 144 MEQ/L (136-145)
[2020-09-15] MEDS: LACTOBACILLUS ACIDOPHILUS CAP (BACID) PO SCH ×2 (08:00→12:18)
[2020-09-15] MEDS ORDERED: LOSARTAN 25 MG TAB PO SCH (09:00)
[2020-09-15] MEDS ORDERED: ISOVUE-370 76% 100ML VIAL As Ordered ONE (09:23)
--- NOTE | 2020-09-15 10:06 | HPE ---
HISTORY AND PHYSICAL DATE OF ADMISSION: 09/14/2020 CHIEF COMPLAINTS: 1. Lower quadrant abdominal pain. 2. Generalized weakness. HISTORY OF PRESENT ILLNESS: This is an 89-year-old male with a history of hypertension, hypercholesterolemia, diverticulosis, hemorrhoids, abnormal EKG with left axis deviation, left anterior fascicular block, BPH, left knee replacement, reducible umbilical hernia, carpal tunnel surgery bilaterally who was in his usual state of health until 2 weeks ago when he developed bilateral lower quadrant abdominal discomfort without fever, chills, nausea or vomiting. Patient's pain was achy, constant, on and off, lasting for a few hours and changed by position or food, treated with antibiotics by outpatient primary care physician without improvement with an 8-9 pound weight loss, but denies any bright red blood per rectum, melena, black tarry stools, constipation. No prior history of mesenteric ischemia or ischemic colitis in the past. Presents today due to generalized weakness and persistent abdominal discomfort. Patient otherwise denies any dysuria, urgency, frequency, fever or chills, flank pain, hematuria. In the Emergency Room CBC, metabolic panel were within normal limits, troponin negative. CT abdomen and pelvis was also negative for acute pathology. Chest x-ray had no acute cardiopulmonary disease. EKG was sinus rhythm, normal ventricular rate of 79. Hospitalist was asked to admit the patient for generalized weakness, difficulty ambulating and further evaluation of bilateral lower quadrant abdominal discomfort and weight loss. In the Emergency Room he was found to have hypertensive urgency with blood pressure of 207/110, given I.V. labetalol, losartan and 2 doses of clonidine, hydralazine and Norvasc with better control to 170/90. While patient was being admitted he was found to have a tick in the left lower quadrant which was removed. Lyme titers were sent/Lyme screen. Coronavirus was negative. He was started on I.V. ceftriaxone for presumed Lyme disease. PAST MEDICAL HISTORY: 1. Hypertension. 2. Osteoarthritis. 3. Umbilical hernia which is reducible. 4. Diverticulosis. 5. Hemorrhoids. 6. Hypercholesterolemia. 7. Previous smoker - just a few cigarettes in college. 8. Abnormal EKG with left axis deviation and left anterior fascicular block. 9. BPH. PAST SURGICAL HISTORY: 1. Left knee replacement. 2. Bilateral carpal tunnel surgeries. HOME MEDICATIONS: 1. Celebrex 100 at bedtime. 2. Losartan 25 daily. 3. Moxifloxacin 400 daily. 4. Tamsulosin 0.4 mg daily. 5. Prilosec 40 mg daily. ALLERGIES: No known drug allergies. FAMILY HISTORY: Noncontributory due to advanced age. SOCIAL HISTORY: Previously smoked cigarettes when he was in college, never smoked after that. No alcohol use. No recreational drug use. Patient is retired previously worked as a contractor. Lives with his at home, Verito [phone number [phone]]. REVIEW OF SYSTEMS: Per HPI, 12 point system otherwise negative. PHYSICAL EXAMINATION: Temperature 98.2, pulse 86, respiratory rate 16, blood pressure on arrival was 207/110 current blood pressure is 170/90. General: Patient is awake, alert, oriented to person, place and time HEENT: Face is symmetric. Tongue is midline. Dry mucous membranes. Neck: No JVD, thyromegaly, cervical lymphadenopathy. Lungs: Clear to auscultation, no wheezes, rhonchi or rales. Heart: S1 and S2 sinus rhythm. Abdomen: Distended, reducible umbilical hernia. A 0.5 cm tick is noted in the left lower quadrant. There is no erythema or rash or target lesion. Extremities: No cyanosis, clubbing or pitting edema. Motor function 5/5 times 4 extremities. Gait was not tested. LABORATORY DATA: White count 5.4, hemoglobin 16, hematocrit 48, platelet count 170. Sodium 140, potassium 3.7, chloride 107, bicarb 27, BUN 12, creatinine 0.91, glucose 101. Total bilirubin 1, direct bilirubin 0.2, AST 10, ALT 22, alkaline phosphatase 72. Troponin less than 0.02. Lipase of 89. Microbiology: Urinalysis negative. Coronavirus negative. IMAGING STUDIES: CT abdomen and pelvis: Diverticulosis. No acute findings. Chest x-ray: No acute cardiopulmonary disease. ASSESSMENT/PLAN: This is an 89-year-old male with a history of hypertension, previous history of smoking while he was in college, abnormal EKG with left axis deviation and left anterior fascicular block, diverticulosis, hemorrhoids, hypercholesterolemia, bilateral carpal tunnel repair, left knee replacement, reducible umbilical hernia who presented to the Emergency Room with complaints of bilateral lower quadrant abdominal pain, treated with Avelox as outpatient, presented to the ER with persistent pain and weakness, found to have a tick in the left lower quadrant as well as hypertensive urgency, pressure of 207/110. He is being admitted for 2 midnight's as an inpatient for the following issues: 1. Hypertensive urgency: Patient is resumed on his home dose of losartan, was given clonidine 0.3 mg times 2 doses, Norvasc, hydralazine as needed. Due to bradycardia patient has not been given any labetalol or atenolol. 2. Bilateral lower quadrant abdominal pain: CT abdomen and pelvis is negative at this time. Patient has a reducible abdominal hernia. Since the patient has not had any complaints of bloody stools and no impressive history of smoking in the past unlikely to have ischemic colitis or mesenteric ischemia, but we will check a mesenteric angiogram in the morning. Exam is unremarkable. 3. Tick in the left lower quadrant: Check Lyme screen. Patient is on ceftriaxone. If negative Lyme for IgM being positive may discontinue antibiotics. 4. History of osteoarthritis: Stable. 5. Reducible umbilical hernia: Check lactic acid. If abnormal give I.V. fluids. 6. Allergic rhinitis: Chronic. 7. BPH: Chronic. 8. DVT prophylaxis: With compression stockings. CODE STATUS: For now patient has not thought about his Code Status and currently remains a Full Code. BISMARK
[2020-09-15] MEDS: OMEPRAZOLE 20 MG CAP PO SCH (10:17)
[2020-09-15 10:49] VITALS: BP 131/70
--- NOTE | 2020-09-15 11:03 | REP ---
INDICATION: abd pain out of proportion to exam r/o mesenteric ischemia. Weight loss. COMPARISON: 09/14/2020. TECHNIQUE: CT angiogram of the abdomen and pelvis was performed with intravenous administration of 100 cc of Isovue 370, without oral contrast. 3D MIP reconstruction images performed. FINDINGS: Abdominal aorta: No aneurysm or dissection. Mild scattered atherosclerotic plaquing is noted of the abdominal aorta. There is no significant narrowing or stenosis of the celiac artery, superior or inferior mesenteric arteries. There are 2 main right renal arteries present and a single main left renal artery. These demonstrate mild plaquing and narrowing without significant stenosis. There is also mild scattered plaquing and narrowing of the common and external iliac arteries bilaterally. Lung bases: Unremarkable. Liver: There is fatty infiltration of the liver. There is a stable 1.6 cm nodule in the posterior right lobe. Gallbladder: Unremarkable. Spleen: Tiny calcified granulomas are seen in the spleen. Adrenals: There is a left adrenal adenoma 1.8 cm in diameter, stable. Pancreas: Normal. Kidneys: A left renal cyst measures 8.9 cm in maximum diameter. Small and large bowel: There is colonic diverticulosis without acute diverticulitis.. Free fluid: None. Adenopathy: None. Appendix: Not inflamed. Pelvis: No mass. There is a small umbilical hernia containing noninflamed fat and small bilateral inguinal hernias containing noninflamed fat. Osseous structures: There are degenerative changes of the spine without compression deformity.. IMPRESSION: No significant narrowing or stenosis of celiac artery, superior or inferior mesenteric arteries. No acute findings. <Electronically signed by Vinny Can > 09/15/20 [id number]
[2020-09-15] MEDS ORDERED: DOXYCYCLINE HYCLATE 100MG TABLET PO ONE (11:25)
[2020-09-15 12:22] VITALS: BP 130/71
--- NOTE | 2020-09-15 23:38 | DS.PDOC ---
Discharge Summary General Date of Admission Sep 14, 2020 at 14:57 Date of Discharge September 15, 2020 Discharge Summary PROCEDURES PERFORMED DURING STAY: None. ADMITTING DIAGNOSES: 1. Hypertensive urgency 2. Bilateral lower quadrant abdominal pain 3. Tick located in the left lower quadrant 4. History of osteoarthritis 5. Reducible umbilical hernia 6. Allergic rhinitis 7. BPH DISCHARGE DIAGNOSES: 1. Hypertensive urgency 2. Bilateral lower quadrant abdominal pain 3. Tick located in the left lower quadrant 4. History of osteoarthritis 5. Reducible umbilical hernia 6. Allergic rhinitis 7. BPH COMPLICATIONS/CHIEF COMPLAINT: Hypertensive Urgency. HISTORY OF PRESENT ILLNESS: Copied from admitting physician's H&P " This is an 89-year-old male with a history of hypertension, hypercholesterolemia, diverticulosis, hemorrhoids, abnormal EKG with left axis deviation, left anterior fascicular block, BPH, left knee replacement, reducible umbilical hernia, carpal tunnel surgery bilaterally who was in his usual state of health until 2 weeks ago when he developed bilateral lower quadrant abdominal discomfort without fever, chills, nausea or vomiting. Patient's pain was achy, constant, on and off, lasting for a few hours and changed by position or food, treated with antibiotics by outpatient primary care physician without improvement with an 8-9 pound weight loss, but denies any bright red blood per rectum, melena, black tarry stools, constipation. No prior history of mesenteric ischemia or ischemic colitis in the past. Presents today due to generalized weakness and persistent abdominal discomfort. Patient otherwise denies any dysuria, urgency, frequency, fever or chills, flank pain, hematuria. In the Emergency Room CBC, metabolic panel were within normal limits, troponin negative. CT abdomen and pelvis was also negative for acute pathology. Chest x-ray had no acute cardiopulmonary disease. EKG was sinus rhythm, normal ventricular rate of 79. Hospitalist was asked to admit the patient for generalized weakness, difficulty ambulating and further evaluation of bilateral lower quadrant abdominal discomfort and weight loss. In the Emergency Room he was found to have hypertensive urgency with blood pressure of 207/110, given I.V. labetalol, losartan and 2 doses of clonidine, hydralazine and Norvasc with better control to 170/90. While patient was being admitted he was found to have a tick in the left lower quadrant which was removed. Lyme titers were sent/Lyme screen. Coronavirus was negative. He was started on I.V. ceftriaxone for presumed Lyme disease. " HOSPITAL COURSE: Patient was given clonidine and amlodipine and blood pressure was controlled, but overnight, SBP dropped to 70s to 80s. Patient was given 1L NS bolus. Patient's low BP was most likely iatrogenic. The follow morning, blood pressure was better controlled and abdominal pain resolved. He had CT angio abd/pelvis which was negative for ischemia. Patient was given 1 time dose of 200mg PO Doxycycline. Patient will need to follow up outpatient for final results of the Lyme screen and tick analysis. Patient felt well and felt ready for home. He was discharged later in the day. DISCHARGE MEDICATIONS: Please see below. ALLERGIES: Please see below. PHYSICAL EXAMINATION ON DISCHARGE: VITAL SIGNS: Please see below. GENERAL: Comfortable, in no apparent distress HEENT: Head normocephalic, atraumatic NECK: Supple CARDIOVASCULAR EXAMINATION: Regular rate and rhythm RESPIRATORY EXAMINATION: Lungs clear to auscultation bilaterally ABDOMINAL EXAMINATION: Soft, non-tender, normal bowel sounds EXTREMITIES: No pitting edema bilaterally SKIN: Warm and dry NEUROLOGICAL EXAMINATION: CN 3-12 grossly intact PSYCHIATRIC EXAMINATION: Normal mood and affect LABORATORY DATA: Please see below. IMAGING: Radiologist interpretation CT abd/pelvis with IV contrast FINDINGS: Seen in the posterior segment of the right lobe of the liver there is an intensely enhancing lesion which is completely unchanged when compared to an older prior contrast-enhanced examination of the abdomen from 03/12/2014 there are no new hepatic abnormalities. The gallbladder, spleen, pancreas, adrenal glands, and kidneys are also unchanged. There is a stable left adrenal gland nodule and a stable Bosniak class 1 left renal cyst. The abdominal aorta and para-aortic regions are within normal limits. There is no significant change in appearance of the bowel loops or the mesenteries. There is colonic diverticulosis status quo. Increased adipose this seen in each inguinal canal right greater than left also appearing stable. There are no abnormal bowel containing inguinal hernias. There is evidence of a small umbilical hernia through which a knuckle of small bowel protrudes. There is evidence of prostatomegaly. There is no free fluid or free air. There is no significant change in appearance of the imaged osseous structures. Spinal, hip, and sacroiliac degenerative changes are again noted. IMPRESSION: There is no evidence of acute disease. Findings as described above. CT angio abd/pelvis No significant narrowing or stenosis of celiac artery, superior or inferior mesenteric arteries. No acute findings. PROGNOSIS: Good ACTIVITY: As tolerated. DIET: 2gm sodium diet. DISCHARGE PLAN: Home DISPOSITION: 01 Home, Self-Care. DISCHARGE INSTRUCTIONS: 1. Follow up with your PCP within 1 week ITEMS TO FOLLOWUP ON ON OUTPATIENT: 1. Results of the lyme screen 2. Results from tick analysis DISCHARGE CONDITION: Stable. Total time spent on discharge planning, discharge summary, and medication reconciliation: 50 minutes Vital Signs/I&Os Vital Signs Date Time Temp Pulse Resp B/P (MAP) Pulse Ox O2 Delivery O2 Flow Rate FiO2 09/15/20 12:22 58 130/71 (90) 09/15/20 06:00 97.4 18 93 Room Air I&O- Last 24 Hours up to 6 AM 09/15/20 06:00 Intake Total 1190 ml Output Total 700 ml Balance 490 ml Laboratory Data Labs 24H Laboratory Tests 2 09/14/20 23:54: Total Creatine Kinase 44, Creatine Kinase MB 1.5, Creatine Kinase MB Relative Index 3.41, Troponin I 0.03 09/15/20 06:01: Immature Granulocyte % (Auto) 0.3, Neutrophils (%) (Auto) 58.1, Lymphocytes (%) (Auto) 27.6, Monocytes (%) (Auto) 11.3H, Eosinophils (%) (Auto) 2.4, Basophils (%) (Auto) 0.3, Neutrophils # (Auto) 3.4, Lymphocytes # (Auto) 1.6, Monocytes # (Auto) 0.7, Eosinophils # (Auto) 0.1, Basophils # (Auto) 0.0, Nucleated Red Blood Cells % (auto) 0.0, Anion Gap 5L, Glomerular Filtration Rate > 60.0, Calcium Level 8.2L CBC/BMP Laboratory Tests 09/15/20 06:01 Discharge Medications Scheduled Celecoxib (Celebrex) 100 Mg Cap, 100 MG PO QHS, (Reported) Losartan Potassium (Losartan Potassium) 25 Mg Tablet, 25 MG PO DAILY, (Reported) Omeprazole (Omeprazole) 40 Mg Capsule.dr, 40 MG PO DAILY, (Reported) Tamsulosin Hcl (Tamsulosin HCl) 0.4 Mg Capsule, 0.4 MG PO QHS, (Reported) Allergies Coded Allergies: No Known Allergies (Unverified , 09/14/20) MEAGHAN YEUNG DO Sep 15, 2020 23:38
[2020-09-16 15:10] LABS: Lyme Disease IgG/IgM Antibodie <0.91 ISR (0.00-0.90); Lyme Disease IgM Ab Quantitati <0.80 index (0.00-0.79)
== END 2020-09-15 12:50 | disposition home or self-care (01) | DRG 305 ==
LOC: EDBD 08:41 → M ED 08:41 → M ED INP 14:57 → ENRESERV 15:25 → M MS5PR 17:15
PROVIDERS: ADMIT General Practice; ATTEND Internal Medicine
DX: I16.0 Hypertensive urgency (principal); M19.90 Unspecified osteoarthritis, unspecified site; N40.0 Benign prostatic hyperplasia without lower urinary tract symptoms; K42.9 Umbilical hernia without obstruction or gangrene; E78.00 Pure hypercholesterolemia, unspecified; K57.30 Diverticulosis of large intestine without perforation or abscess without bleeding; K64.8 Other hemorrhoids; I44.4 Left anterior fascicular block; Z96.652 Presence of left artificial knee joint; S30.861A Insect bite (nonvenomous) of abdominal wall, initial encounter; W57.XXXA Bitten or stung by nonvenomous insect and other nonvenomous arthropods, initial encounter; Y92.009 Unspecified place in unspecified non-institutional (private) residence as the place of occurrence of the external cause; Z79.899 Other long term (current) drug therapy

== ENCOUNTER → 2020-10-06 | Outpatient (CLI) | payer MEDICARE, OTHER ==
[~2020-10-06] MED LIST changes: +LOSA25TA14 PO; +MOXI400T11 PO; +OMEP-221 PO; +TAMS1CAP17 PO
[2020-10-06 20:05] LABS: BASO % 0.2 % (0.0-1.0); EOS # 0.2 10^3/uL (0.0-0.5); EOS % 3.2 % (0.0-3.0); HEMATOCRIT 51.8 % (42.0-52.0); HEMOGLOBIN 16.3 g/dl (13.5-17.5); LYMPH # 1.7 10^3/uL (1.5-5.0); LYMPH % 31.2 % (24.0-44.0); MEAN CORPUSCULAR HEMOGLOBIN 28.8 pg (27.0-33.0); MEAN CORPUSCULAR HGB CONC 31.5 g/dl (32.0-36.5); MEAN CORPUSCULAR VOLUME 91.7 fl (80.0-96.0); MONO # 0.6 10^3/uL (0.0-0.8); MONO % 9.9 % (2.0-8.0); NEUTROPHILS # 3.1 10^3/uL (1.5-8.5); PLATELET COUNT, AUTOMATED 195 10^3/uL (150-450); RED BLOOD COUNT 5.65 10^6/uL (4.30-6.10); WHITE BLOOD COUNT 5.6 10^3/uL (4.0-10.0)
[2020-10-06 20:31] LABS: ALBUMIN 3.6 GM/DL (3.2-5.2); ALT/SGPT 21 U/L (12-78); BILIRUBIN,TOTAL 0.6 MG/DL (0.2-1.0); BLOOD UREA NITROGEN 19 MG/DL (7-18); CALCIUM LEVEL 8.8 MG/DL (8.8-10.2); CARBON DIOXIDE LEVEL 27 MEQ/L (21-32); CHLORIDE LEVEL 103 MEQ/L (98-107); GLOMERULAR FILTRATION RATE > 60.0 (>35); GLUCOSE, FASTING 133 MG/DL (70-100); POTASSIUM SERUM 4.3 MEQ/L (3.5-5.1); SODIUM LEVEL 139 MEQ/L (136-145); TOTAL PROTEIN 6.6 GM/DL (6.4-8.2)
[2020-10-06 20:33] LABS: TOTAL 25(OH) VITAMIN D 22.6 NG/ML (30.0-100.0)
[2020-10-08 18:08] LABS: Lyme Disease IgG/IgM Antibodie <0.91 ISR (0.00-0.90); Lyme Disease IgM Ab Quantitati <0.80 index (0.00-0.79)
== END ==
LOC: M WUC 15:33
PROVIDERS: ATTEND Family Medicine
DX: R53.83 Other fatigue (principal); S30.861A Insect bite (nonvenomous) of abdominal wall, initial encounter; E55.9 Vitamin D deficiency, unspecified; X58.XXXA Exposure to other specified factors, initial encounter; Y92.9 Unspecified place or not applicable; Z79.899 Other long term (current) drug therapy

== ENCOUNTER → 2020-11-25 | Outpatient (CLI) | payer MEDICARE, OTHER ==
[~2020-11-25] MED LIST changes: +E-Z-GAS II EFFERVESCENT PACKET (SODIUM BICARB./CITRIC ACID/SIMETHICONE) As Ordered ONE; +E-Z-HD 98% w/w 340GM SUSP BTL As Ordered ONE; +E-Z-PAQUE 96% w/w SUSP 176GM BTL As Ordered ONE
--- NOTE | 2020-11-25 15:59 | REP ---
INDICATION: ABN WEIGHT LOSS, ABD PAIN. COMPARISON: None. TECHNIQUE: The procedure was performed under the direct supervision of Dr. Carrion. The images were reviewed with Dr. Carrion. Liquid barium and gas producing crystals were given in the erect position as well as liquid barium in the prone oblique position in order to perform a double contrast upper GI examination. Additionally liquid barium was given at the end of the examination in order to perform a small bowel follow through. A combination od fluoroscopy, spot films and last image hold technology was utilized, 2 minutes of fluoro time was utilized for this procedure. FINDINGS: The ux developer designer film shows no organomegaly or pathological masses. The intestinal gas pattern is non-specific. The oral and pharyngeal stages of deglutition are unremarkable. During esophageal transport are tertiary waves demonstrated. There is no esophagitis, stricture, mucosal ring or hiatal hernia. The stomach corral are normally outlined. The rugal folds are smooth and regular. There is no gastritis neoplasm or ulcer disease. The duodenal corral are normally outlined . The mucosal folds are smooth and regular. There is no duodenitis pancreatitis peptic ulcer disease or neoplasm. The visualized portion of the proximal small bowel appears normal in course and caliber. In the proximal jejunum, there is a large diverticulum which measures approximate 4 cm. The barium column was followed through the small bowel to the level of the terminal ileum. Small bowel transit time is approximately 170 minutes. During fluoroscopy gentle palpation shows all loops are freely movable and pliable. There are no fixed or angulated loops. The small bowel mucosal pattern is normal in course and caliber. There is no transition to suggest a partial small-bowel obstruction. Spot filming of the terminal ileum shows it to be unremarkable. IMPRESSION: 1. Tertiary waves. 2. In the proximal jejunum there is a large diverticulum which measures approximately 4 cm. <Electronically signed by Jose Cruz Huerta > 11/25/20 1527 <Electronically signed by Eric Carrion > 11/25/20 [id number]
== END ==
LOC: M RAD 08:12
PROVIDERS: ATTEND Physician Assistant Medical
DX: R10.33 Periumbilical pain (principal); R63.4 Abnormal weight loss; K21.9 Gastro-esophageal reflux disease without esophagitis

== ENCOUNTER → 2020-12-23 | Outpatient (CLI) | payer MEDICARE, OTHER ==
[~2020-12-23] MED LIST changes: +AVOD0.5C PO; -E-Z-GAS II EFFERVESCENT PACKET (SODIUM BICARB./CITRIC ACID/SIMETHICONE) As Ordered ONE; -E-Z-HD 98% w/w 340GM SUSP BTL As Ordered ONE; -E-Z-PAQUE 96% w/w SUSP 176GM BTL As Ordered ONE; +FAMO20TA PO; +LISI10TA22 PO; +SM A
== END ==
LOC: M LABSMTC 11:38
PROVIDERS: ATTEND Anesthesiology
DX: Z01.812 Encounter for preprocedural laboratory examination (principal); Z20.822 Contact with and (suspected) exposure to COVID-19

== ENCOUNTER 2020-12-28 11:25 | Day surgery (SDC) | payer MEDICARE, OTHER ==
[~2020-12-28] VITALS: Ht 190.5 cm; Wt 95.7 kg
[~2020-12-28 11:25] MED LIST changes: +NS 1,000 ML IV ONE
[2020-12-28] MEDS ORDERED: LIDOCAINE 2% 100MG/5ML SDV (FOR ANES.) As Ordered ONE (12:33)
[2020-12-28] MEDS ORDERED: propofoL 200 MG/20 ML VIAL As Ordered ONE (12:33)
--- NOTE | 2020-12-28 12:49 | ROOR ---
Patient Name: Robin Tillman Procedure Date: 12/28/2020 12:25 PM Date of : 1930 Age: 89 Room: [facility] Gender: Male Note Status: Finalized Procedure: Upper GI endoscopy Indications: Dyspepsia, Heartburn, Weight loss Providers: Quentin Richards MD Referring MD: Melissa Soria MD Requesting Provider: Medicines: Monitored Anesthesia Care Complications: No immediate complications. Procedure: Pre-Anesthesia Assessment: - The heart rate, respiratory rate, oxygen saturations, blood pressure, adequacy of pulmonary ventilation, and response to care were monitored throughout the procedure. The Endoscope was introduced through the mouth, and advanced to the second part of duodenum. The upper GI endoscopy was accomplished without difficulty. The patient tolerated the procedure well. Findings: The examined esophagus was normal. Localized mild inflammation characterized by erythema and granularity was found in the cardia. Biopsies were taken with a cold forceps for histology. The exam of the stomach was otherwise normal. (Compliant/large volume) The examined duodenum was normal. Impression: - Normal esophagus. - Mild focal gastritis/prominent gastric fold in proximal body of stomach. Biopsied. - The stomach is otherwise normal. - Normal examined duodenum. Recommendation: - Telephone endoscopist for pathology results in 2 weeks. Procedure Code(s): --- Professional --- 76185, Esophagogastroduodenoscopy, flexible, transoral; with biopsy, single or multiple Diagnosis Code(s): --- Professional --- K29.70, Gastritis, unspecified, without bleeding R12, Heartburn R10.13, Epigastric pain R63.4, Abnormal weight loss CPT copyright 2019 [employer]. All rights reserved. The codes documented in this report are preliminary and upon geochemical manager review may be revised to meet current compliance requirements. Quentin Richards MD Quentin Richards MD 12/28/2020 12:49:04 PM Electronically signed by Quentin Richards MD Number of Addenda: 0 Note Initiated On: 12/28/2020 12:25 PM Estimated Blood Loss: Estimated blood loss: none.
--- NOTE | 2020-12-28 13:13 | ROOR ---
Patient Name: Robin Tillman Procedure Date: 12/28/2020 12:26 PM Date of : 1930 Age: 89 Room: [facility] Gender: Male Note Status: Finalized Procedure: Colonoscopy Indications: Generalized abdominal pain, Change in bowel habits, Weight loss Providers: Quentin Richards MD Referring MD: Melissa Soria MD Requesting Provider: Medicines: Monitored Anesthesia Care Complications: No immediate complications. Procedure: Pre-Anesthesia Assessment: - The heart rate, respiratory rate, oxygen saturations, blood pressure, adequacy of pulmonary ventilation, and response to care were monitored throughout the procedure. The Colonoscope was introduced through the anus and advanced to 10 cm into the ileum. The colonoscopy was performed without difficulty. The patient tolerated the procedure well. The quality of the bowel preparation was good. Findings: The perianal and digital rectal examinations were normal. A 4 mm polyp was found in the recto-sigmoid colon. The polyp was sessile. The polyp was removed with a cold snare. Resection and retrieval were complete. Multiple small and large-mouthed diverticula were found in the sigmoid colon and descending colon. The exam was otherwise normal throughout the examined colon. The terminal ileum appeared normal. Biopsies for histology were taken with a cold forceps for evaluation of microscopic colitis. Impression: - One 4 mm polyp at the recto-sigmoid colon, removed with a cold snare. Resected and retrieved. - Moderate to severe diverticulosis in the sigmoid colon and in the descending colon. - The colon is otherwise normal. - The examined portion of the ileum was normal. - Biopsies were taken with a cold forceps for evaluation of microscopic colitis. Recommendation: - Await pathology results. - No repeat colonoscopy due to age. Procedure Code(s): --- Professional --- 36365, Colonoscopy, flexible; with removal of tumor(s), polyp(s), or other lesion(s) by snare technique 29929, 59, Colonoscopy, flexible; with biopsy, single or multiple Diagnosis Code(s): --- Professional --- K57.30, Diverticulosis of large intestine without perforation or abscess without bleeding R63.4, Abnormal weight loss R10.84, Generalized abdominal pain R19.4, Change in bowel habit K63.5, Polyp of colon CPT copyright 2019 [employer]. All rights reserved. The codes documented in this report are preliminary and upon emergency planner review may be revised to meet current compliance requirements. Quentin Richards MD Quentin Richards MD 12/28/2020 1:12:48 PM Electronically signed by Quentin Richards MD Number of Addenda: 0 Note Initiated On: 12/28/2020 12:26 PM Estimated Blood Loss: Estimated blood loss: none.
[2020-12-28 13:40] VITALS: BP 131/63
== END 2020-12-28 13:50 | disposition home or self-care (01) ==
LOC: M OPP 11:25
PROVIDERS: ATTEND Internal Medicine Gastroenterology
DX: K63.5 Polyp of colon (principal); K57.30 Diverticulosis of large intestine without perforation or abscess without bleeding; R10.84 Generalized abdominal pain; R19.4 Change in bowel habit; R63.4 Abnormal weight loss; K29.70 Gastritis, unspecified, without bleeding; R10.13 Epigastric pain; Z79.899 Other long term (current) drug therapy; Z85.46 Personal history of malignant neoplasm of prostate; Z87.891 Personal history of nicotine dependence

== ENCOUNTER → 2021-06-05 | Outpatient (REF) | payer BC, MEDICARE ==
[~2021-06-05] MED LIST changes: +LOSA25TA13 PO; -LOSA25TA14 PO; -NS 1,000 ML IV ONE; -OMEP-221 PO; +OMEP40CA5 PO
== END ==
LOC: M WUC 23:57
DX: J02.9 Acute pharyngitis, unspecified (principal)

== ENCOUNTER → 2021-08-19 | Outpatient (REF) | payer MEDICARE, OTHER | LOC: M LABWUC 14:24 | DX: C61 Malignant neoplasm of prostate (principal) ==